=== PATIENT | male | born 1995 | race Caucasian/White ===

== ENCOUNTER 2020-07-15 09:16 | Outpatient (CLI) | payer BC, SELFPAY ==
[2020-07-15 13:20] LABS: Anion Gap 7.4 mmol/L (3-11); BUN 13 mg/dL (7-18); CO2 30.6 mmol/L (21.0-32.0); Calcium 8.9 mg/dL (8.5-10.1); Calculated LDL 98 mg/dL (<100); Chloride 105 mmol/L (98-107); Cholesterol 154 mg/dL (<200); Glucose 99 mg/dL (74-106); HDL Cholesterol 38 mg/dL (40-60); Potassium 4.2 mmol/L (3.5-5.1); Sodium 143 mmol/L (136-145); Triglyceride 94 mg/dL (<150)
[2020-07-15 13:35] LABS: Hemoglobin A1C 5.3 % (<5.7)
== END 2020-07-15 09:17 | disposition home or self-care (01) ==
PROVIDERS: PCP Nurse Practitioner Family; Referring Provider Nurse Practitioner Family; Visit Provider Nurse Practitioner Family
DX: I10 Essential (primary) hypertension (principal); E55.9 Vitamin D deficiency, unspecified
CPT/HCPCS: 36415; 80048; 80061; 82306; 83036

== ENCOUNTER 2024-05-08 00:58 | Outpatient (CLI) | payer OTHER, SELFPAY ==
[2024-05-08 12:19] LABS: Abs Immature Grans 0.03 10^3/uL (0.0-0.06); Absolute Basophil Count 0.05 10^3/uL (0.0-0.2); Absolute Eosinophil Count 0.13 10^3/uL (0.0-0.7); Absolute Lymphocyte Count 1.44 10^3/uL (1.2-3.4); Absolute Monocyte Count 0.74 10^3/uL (0.1-0.8); Absolute Neutrophil Count 2.69 10^3/uL (1.2-6.7); Eosinophils % 2.6 %; HCT 51.5 % (40.0-50.0); HGB 17.2 g/dL (13.5-17.5); Immature Grans % 0.6 %; Lymphocytes % 28.3 %; MCHC 33.4 % (32.0-36.0); MCV 90 fL (80-95); MPV 10.5 fL (8.0-11.0); Monocytes % 14.6 %; Neutrophils % 52.9 %; Platelet Count 224 10^3/uL (130-400); RBC 5.73 10^6/uL (4.36-5.78); RDW 12.4 % (11.8-14.1); RDW-SD 41.1 fL; WBC 5.08 10^3/uL (4.4-10.8)
[2024-05-08 12:31] LABS: Hemoglobin A1C 5.8 % (<5.7)
[2024-05-08 12:54] LABS: ALT 63 U/L (16-63); AST 36 U/L (15-37); Albumin 4.3 g/dL (3.4-5.0); Alkaline Phosphatase 63 U/L (46-116); Anion Gap 6.4 mmol/L (3-11); BUN 14 mg/dL (7-18); Bilirubin, Total 0.8 mg/dL (0.2-1.0); CO2 32.6 mmol/L (21.0-32.0); CREATININE 1.2 mg/dL (0.70-1.30); Calcium 9.3 mg/dL (8.5-10.1); Calculated LDL 75 mg/dL (<100); Chloride 104 mmol/L (98-107); Cholesterol 126 mg/dL (<200); Estimated GFR 83.43 (mL/min/1.73m2); Glucose 95 mg/dL (74-106); HDL Cholesterol 31 mg/dL (>or=40); Potassium 3.5 mmol/L (3.5-5.1); Sodium 143 mmol/L (136-145); TSH (W/Ref FT4) 0.73 uIU/mL (0.36-3.74); Total Protein 7.6 g/dL (6.4-8.2); Triglyceride 102 mg/dL (<150); Vitamin D 25 Total 10 ng/mL (30-100)
[2024-05-10 10:20] LABS: HIV-1/2 Ag & Ab Screen Negative (Negative)
[2024-05-11 12:58] LABS: HBs Antibody, Quant >1000.0 mIU/mL (See Note); Hep B Surface Ab Positive (See Note); Hepatitis B Core Antibody Negative (Negative); Hepatitis B Surface Antigen Negative (Negative)
[2024-05-11 14:06] LABS: Hepatitis C Ab w Rflx HCV PCR Negative (Negative)
== END 2024-05-08 00:59 | disposition home or self-care (01) ==
LOC: LOS 00:58
PROVIDERS: PCP Nurse Practitioner Family; Referring Provider Nurse Practitioner Family; Visit Provider Nurse Practitioner Family
DX: I10 Essential (primary) hypertension (principal); E66.9 Obesity, unspecified; Z11.4 Encounter for screening for human immunodeficiency virus [HIV]; Z11.59 Encounter for screening for other viral diseases; E55.9 Vitamin D deficiency, unspecified
CPT/HCPCS: 36415; 80053; 80061; 82306; 86704; 86706; 86803; 87340; 87389; 83036; 84443; 85025

== ENCOUNTER 2024-11-29 14:50 | Emergency (ER) | payer OTHER, SELFPAY ==
--- NOTE | 2024-11-29 14:45 | DI.CT_ITS ---
Exam(s) CT LOWER EXTREMITY RT WO EXAM: CT LOWER EXTREMITY RT WO CLINICAL HISTORY: fall, dislocated patella, eval for tib plat/fem fx. TECHNIQUE: Imaging Protocol: Axial computed tomography images with coronal and sagittal reformatted images were created and reviewed. The field of view includes the lower 3rd of the thigh through upper 3rd of the tibia and fibula. COMPARISON: CR,XR XR KNEE RT 4V AP,LAT,DAVID,PAT from 11/29/2024 FINDINGS: Bones: There are multiple bony fragments adjacent to the medial aspect of the patella. There may be an acute fracture of the medial aspect of the patella however moved the majority of the fragments appear well corticated and related to old trauma. There is mild periarticular spurring. Joints: There is a moderate-sized joint effusion. There is lateral subluxation of the patella. There is mild lateral patellar femoral joint space narrowing. Soft Tissues: Mild anterior soft tissue swelling. IMPRESSION: There appears to be acute in acute fracture at the medial aspect of the patella with fragment displaced medially. There is lateral patellar subluxation. Additional bony fragments are noted medial to the patella which appear chronic. The preliminary [facility] report was reviewed. RADIATION DOSE DELIVERED: Total DLP DATA REPOSITORY: All CT scans at this facility are submitted to the National Radiology Data Registry (NRDR) Dose Index Registry (DIR) with the [employer] ([employer]). RADIATION OPTIMIZATION: All CT scans at this facility use at least one of these dose optimization techniques: automated exposure control; mA and/or kV adjustment per patient size (includes targeted exams where dose is matched to clinical indication); or iterative reconstruction.
--- NOTE | 2024-11-29 14:45 | DI.RAD_ITS ---
Exam(s) XR KNEE RT 4V AP,LAT,DAVID,PAT EXAM: XR KNEE RT 4V AP,LAT,DAVID,PAT CLINICAL HISTORY: fall ,laterally deviated patella. TECHNIQUE: 2D digital imaging was performed. Three views. COMPARISON: None FINDINGS: Exam is quite limited by overlying clothing. BONES: No acute fracture is present. No bony destructive lesion is seen. JOINTS: The femoral tibial joint spaces are maintained. There is mild periarticular spurring. There is marked lateral patellar deviation and patellofemoral joint space narrowing. There are adjacent bony densities. A joint effusion is seen. SOFT TISSUE: Obscured by surrounding material. IMPRESSION: Lateral patellar deviation of uncertain chronic chronicity. Adjacent bony densities which appear chronic. No definite acute fracture. Small joint effusion. The preliminary [facility] report was reviewed. DATA REPOSITORY: RADIATION DOSE DELIVERED:
[2024-11-29 14:48] VITALS: BP 126/78; PULSE 80; RESP 18; TEMP 36; O2SAT 97
--- NOTE | 2024-11-29 15:45 | DI.[facility]_ITS ---
PROCEDURE INFORMATION: Exam: XR right Knee Exam date and time: 11/29/2024 3:26 PM Age: 29 years old Clinical indication: Injury or trauma; Patella or knee; Right; Severity of dislocation not specified; Injury details: Fall , laterally deviated patella; Prior surgery; Surgery date: 6+ months; Surgery type: Knee lateral meniscus 4 years ago TECHNIQUE: Imaging protocol: Radiologic exam of the left knee. Views: 4 or more views. COMPARISON: No relevant prior studies available. FINDINGS: Bones/joints: There is a moderate-sized joint effusion present. There is some joint space narrowing of the patellofemoral articulation. There is lateral subluxation of the patella with fragmentation seen medially, possible loose body formation versus calcific tendinitis. No definite fracture is identified. No dislocation. Soft tissues: Normal. IMPRESSION: Lateral subluxation of the patella. Dystrophic calcifications suggest loose body formation. Dictated and Authenticated by: Hue Escalante MD. Orderin Jesse Myers MD
--- NOTE | 2024-11-29 15:49 | DI.[facility]_ITS ---
PROCEDURE INFORMATION: Exam: CT Right Lower Extremity Without Contrast, Knee Exam date and time: 11/29/2024 3:24 PM Age: 29 years old Clinical indication: Injury or trauma; Dislocation and fracture, traumatic; Patella or knee; Right; Displaced; Injury details: Fall, dislocated patella, eval for tib plat/fem FX; Prior surgery; Surgery date: 6+ months; Surgery type: Lateral meniscus TECHNIQUE: Imaging protocol: CT of the right lower extremity without contrast was performed. Exam focused on the knee. COMPARISON: No relevant prior studies available. FINDINGS: Bones/joints: There is a moderate-sized joint effusion. There is significant laterality of the patella. No dislocation. There are multiple bone density fragments. There is a focus lateral to the femoral condyle series 4, images [id number]. There is a smaller well corticated medial focus, nonacute. There are fragments adjacent to the medial soft tissues of the patella. There is a patellar fracture medially seen series 4, images 428-441. Some of the medial fragments appear well corticated suggesting loose body formation. Soft tissues: See Bones/joints finding. IMPRESSION: Medial patellar fracture. There is lateralization of the patella. Loose body formation not excludable. Joint effusion associated. Dictated and Authenticated by: Heu Escalante MD. Orderin Jesse Myers MD
--- NOTE | 2024-11-29 15:51 | ED.GENADUL_ITS ---
Discharge Plan Disposition Patient Disposition: Home Condition: Good Discharge Details Clinical Impression: Closed fracture of right patella Primary Care Provider: Zakiya Pearson ED Provider: Louis Molina Home Meds and New Rx's Prescriptions: No Action ibuprofen [IBU] 800 mg tablet 800 mg PO Q8H acetaminophen 500 mg tablet 1,000 mg PO Q6H PRN (Reason: pain) Qty: 90 0RF modafinil 200 mg tablet 200 mg PO DAILY losartan 100 mg tablet 100 mg PO DAILY Qty: 90 3RF cholecalciferol (vitamin D3) 50 mcg (2,000 unit) capsule 2,000 unit PO DAILY Qty: 90 3RF Rx Instructions: Take 1 daily after the 8 weeks of the 50,000unit dose chlorthalidone 25 mg tablet 25 mg PO DAILY Qty: 90 3RF Mounjaro 12.5 mg/0.5 mL pen injector 12.5 mg subcut QWEEK Qty: 2 1RF Discharge Instructions Instructions: Patella Fracture ED Additional Instructions: At this time you have a fracture of the medial/inner aspect of your right patella. This will likely need surgical intervention. We have placed a referral with Dr. Angeles for close follow-up. Please wear the knee immobilizer as directed. Use the crutches for weightbearing as tolerated. Take Tylenol and Motrin as needed for pain control. If you notice any worsening of your symptoms, or any new symptoms such as vomiting, diarrhea, fever, chills, shortne ss of breath, chest pain, numbness, weakness, or fainting , please return immediately to the emergency department for reevaluation. Please follow up with your primary care provider as soon as possible for reassessment and reevaluation. As always, it was a pleasure participating in your medical care today. Stand Alone Forms: Work Release Referrals: Zakiya Pearson NP [Primary Care Provider, Medicine] Kaden Angeles [ [facility] STAFF PHYSICIAN, Orthopaedic Surgical] [facility] General Date/Time Provider Initiated Documentation: 11/29/24 14:54 . HPI Narrative: This is a pleasant 29-year-old male with a past medical history of hypertension, obesity, pre but diabetes, ADHD, previous umbilical hernia, and previous right knee injury with surgical intervention performed by Dr. Angeles of [place], who presents today for evaluation of right knee pain. Patient states that he was stepping on a tire when the tire slipped and this caused his knee to bend out laterally and flex. He had immediate pain and saw that his patella was displaced laterally. Pain was worse when he bends his knee, improved when its Straight. He denies numbness or tingling. He did not strike his head or her any other component of his body. He denies any other trauma. Related Data Home Medications ?Medication ?Instructions ?Recorded ?Confirmed ibuprofen 800 mg tablet (IBU) 800 mg PO Q8H 02/13/19 0 11/26/24 acetaminophen 500 mg tablet 1,000 mg (2 x 500 mg) PO Q 6H PRN 12/10/19 11/26/24 pain #90 tabs modafinil 200 mg tablet 200 mg PO DAILY 05/07/24 chlorthalidone 25 mg tablet 25 mg PO DAILY #90 tabs 11/26/24 cholecalciferol (vitamin D3) 50 2,000 unit PO DAILY #9 0 caps 07/03/24 11/26/24 mcg (2,000 unit) capsule losartan 100 mg tablet 100 mg PO DAILY #90 tabs 04/2811/26/24 tirzepatide 12.5 mg/0.5 mL 12.5 mg (0.5 mL) subcut QWE EK #2 mL 11/25/24 11/26/24 subcutaneous pen injector (Mounjaro) Previous Rx's ?Medication ?Instructions ?Recorded acetaminophen 500 mg tablet 1,000 mg (2 x 500 mg) PO Q 6H PRN 12/10/19 pain #90 tabs chlorthalidone 25 mg tablet 25 mg PO DAILY #90 tabs cholecalciferol (vitamin D3) 50 2,000 unit PO DAILY #9 0 caps 07/03/24 mcg (2,000 unit) capsule losartan 100 mg tablet 100 mg PO DAILY #90 tabs 04/28 tirzepatide 12.5 mg/0.5 mL 12.5 mg (0.5 mL) subcut QWE EK #2 mL 11/25/24 subcutaneous pen injector (Mounjaro) Allergies Allergy/AdvReac Type Severity Reaction Status Date / Time No Known Allergies Allergy Verified 08/03/24 14:12 General Stated Complaint: Orthopedic SCOTTY: 3 Exam Narrative Exam Narrative: 1.Const: Well-nourished, Well-developed, appearing stated age 2.Eyes: PERRL, no conjunctival injection, and symmetrical lids. 3.ENT: Atraumatic external nose and ears. Moist MM. Neck: Symmetric, trachea midline, No thyromegaly. 4.CVS: +S1/S2, Peripheral pulses 2+ and equal in all extremities. Brisk capillary refill in all extremities. 5.RESP: Unlabored respiratory effort. Clear to auscultation bilaterally. No wheezes rales or rhonchi 6.GI: Soft, Nontender/Nondistended, No hepatosplenomegaly. No guarding or rebound. 7.MSK: Left knee is unremarkable and stable. Right knee demonstrates patella that is deviated laterally. Mildly tender to palpation. No tenderness over the tibial plateau or the proximal fibula. Pain with flexion, with atypical tracking of the patella. Knee is stable to varus and valgus stressing. Unable to flex the knee completely to perform adequate anterior posterior drawer test. No significant posterior popliteal pain or tenderness. Distal exam demonstrates excellent capillary refill which is brisk, as well as normal dorsalis pedis and posterior tibial pulse without any deficit. 8.Skin: Warm, Dry. No rashes or lesions. 9.Neuro: lead sharepoint developer II-XII grossly intact. Sensation grossly intact, no focal neurologic deficits. 10.Psych: (AAO) x3. Appropriate mood and affect Course Vital Signs Vital signs: Vital Signs Temperature 36.0 C L 11/29/24 14:48 Pulse 80 11/29/24 14:48 Respiratory Rate 18 11/29/24 14:48 Blood Pressure 126/78 11/29/24 14:48 Pulse Oximetry 97 11/29/24 14:48 Temperature 36.0 C L 11/29/24 14:48 Temperature Source Temporal Artery Scan 11/29/24 14:48 Pulse 80 11/29/24 14:48 Respiratory Rate 18 11/29/24 14:48 Blood Pressure 126/78 11/29/24 14:48 Blood Pressure Position Supine 11/29/24 14:48 Pulse Oximetry 97 11/29/24 14:48 Oxygen Delivery Method Room Air 11/29/24 14:48 Oxygen Flow Rate 0 11/29/24 14:48 Pain Level 6 11/29/24 14:48 Medical Decision Making This is a pleasant 29-year-old male with a past medical history of hypertension, obesity, pre but diabetes, ADHD, previous umbilical hernia, and previous right knee injury with surgical intervention performed by Dr. Angeles of [place], who presents today for evaluation of right knee pain. Patient states that he was stepping on a tire when the tire slipped and this caused his knee to bend out laterally and flex. He had immediate pain and saw that his patella was displaced laterally. Pain was worse when he bends his knee, improved when its Straight. He denies numbness or tingling. He did not strike his head or her any other component of his body. He denies any other trauma. Left knee is unremarkable and stable. Right knee demonstrates patella that is deviated laterally. Mildly tender to palpation. No tenderness over the tibial plateau or the proximal fibula. Pain with flexion, with atypical tracking of the patella. Knee is stable to varus and valgus stressing. Unable to flex the knee completely to perform adequate anterior posterior drawer test. No significant posterior popliteal pain or tenderness. Distal exam demonstrates excellent capillary refill which is brisk, as well as normal dorsalis pedis and posterior tibial pulse without any deficit. Concern is for patellar ligamentous injury, patellar fracture, or potential fracture of the distal femur. Will get an x-ray followed by CT imaging for further delineation. Patient will likely need MRI on outpatient basis. No posterior pain or evidence of swelling in the posterior popliteal space. No diminished pulses or capillary refill of the lower extremity to suggest vascular injury. No history of hyperextension to suggest popliteal disruption. No indication for CT angiography at this time based on current clinical assessment and history. Patient declines any Tylenol or Motrin. We will monitor closely and reassess. 4:28 PM X-ray shows evidence of medial patellar fracture, with lateralization of the patella, which correlates clinically with symptomatology. Discussed the case with orthopedics with recommendations for knee immobilizer and weightbearing as tolerated. Will discharge with a knee immobilizer and crutches. Patient has requested referral to Dr. Angeles's office. Referral has been placed. At this time no evidence of neurovascular compromise otherwise. Patient stable in knee immobilizer with crutches. Discussed red flags which to return. I have extensively reviewed the treatment plan and discharge instructions with the patient and their family. I have addressed all patient concerns at this time. The patient and family was made aware of what symptoms to monitor for that would warrant a return to the emergency department. Discussed the plan with the patient and family, they demonstrate verbal understanding and agreement with our assessment and plan at this time. The documentation in this chart was dictated using [employer] dictation software. Please excuse any dictation errors. FINDINGS: Bones/joints: There is a moderate-sized joint effusion. There is significant laterality of the patella. No dislocation. There are multiple bone density fragments. There is a focus lateral to the femoral condyle series 4, images 455-473. There is a smaller well corticated medial focus, nonacute. There are fragments adjacent to the medial soft tissues of the patella. There is a patellar fracture medially seen series 4, images 428-441. Some of the medial fragments appear well corticated suggesting loose body formation. Soft tissues: See Bones/joints finding. IMPRESSION: Medial patellar fracture. There is lateralization of the patella. Loose body formation not excludable. Joint effusion associated. Thank you for allowing us to participate in the care of your patient. Dictated and Authenticated by: Hue Escalante MD Quality:SDOH Health Related Social Needs: Health related social needs house/econ circumstance PFSH All Active Problems (Updated 11/29/24 @ 16:31 by Louis Molina DO) Closed fracture of right patella (Acute) Obstructive sleep apnea (Chronic) Original PSG 08/12/11. CPAP QHS Essential hypertension (Chronic) Obesity (Chronic) Prediabetes (Chronic) Vitamin D deficiency (Chronic) ADHD (attention deficit hyperactivity disorder) (Chronic) Umbilical hernia (Chronic) Surgical History S/P right knee surgery (06/15/20) Partial lateral meniscectomy, lateral release, tricompartmental shaving chondroplasty S/P tonsillectomy and adenoidectomy Family History Mother NICOLASA (obstructive sleep apnea) Father No problems noted. Sister No problems noted. Brother NICOLASA (obstructive sleep apnea) Paternal Grandfather , 80 from [place] Prostate cancer Bladder cancer Cancer of kidney Stroke Heart disease Myocardial infarction Paternal Grandmother Dementia Maternal Grandfather NICOLASA (obstructive sleep apnea) Hypertension Maternal Grandmother NICOLASA (obstructive sleep apnea) Hypertension Social History Smoking/Tobacco Use Status: Current-Occasional Tobacco Type: smokeless tobacco Tobacco: How many years used: 9 Smokeless tobacco user: chewing tobacco Quit status: considering quitting Second Hand Exposure: Yes Smoking risk assessment performed?: Yes Alcohol Intake: current Alcohol Intake frequency: a few times a month Alcohol type: hard liquor Drug use: Never Substance use type: does not use Caregiver/Support person: No Household members: family Housing: house Communication Needs: None Do you need help understanding health information?: Rarely Pets and animals: Yes Pets and animals: dog(s) Sexually active: No Do you think of yourself as: straight/heterosexual Current gender identity: male What is your relationship status?: never How often do you talk on the phone with friends or family?: three or more times per week How often do you get together with friends or relatives?: twice per week Do you belong to any clubs or organized social groups?: yes Panel score (0-1 are the most socially isolated patients): 2 Do you feel safe in your relationship?: Yes
== END 2024-11-29 16:41 | disposition home or self-care (01) ==
PROVIDERS: Emergency Provider Student in an Organized Health Care Education/Training Program; PCP Nurse Practitioner Family
DX: S82.091A Other fracture of right patella, initial encounter for closed fracture (principal); W19.XXXA Unspecified fall, initial encounter
CPT/HCPCS: 99284; 99283; 73564; 73700